=== PATIENT | female | born 2000 | race African-American/Black ===

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

== ENCOUNTER 2020-10-18 10:44 | Emergency (ER) | payer BC, OTHER, SELFPAY ==
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
--- NOTE | 2020-10-18 13:21 | RAD REPORT ---
EXAM DESCRIPTION: RAD - Chest Pa And Lat (2 Views) - 10/18/2020 12:58 pm CLINICAL HISTORY: CHEST PAIN Chest pain. COMPARISON: Abdomen Acute Series dated 10/06/2017; CHEST PA AND LAT 2 VIEW dated 01/23/2012 FINDINGS: The lungs are clear. The heart is normal in size. No displaced fractures. IMPRESSION: No acute or concerning finding suspected.
[2020-10-18 13:28] VITALS: TEMP 99.1; O2SAT 100
[2020-10-18 13:30] VITALS: BP 113/68
== END 2020-10-18 13:22 | disposition home or self-care (01) ==
LOC: ER 10:44
DX: R07.89 Other chest pain (principal)
CPT/HCPCS: 71046; 93005; 99284

== ENCOUNTER 2022-01-25 13:07 | Emergency (ER) | payer BC, SELFPAY ==
[2022-01-25] MEDS ORDERED: LORAZEPAM 1 MG TABLET ONE (14:10)
[2022-01-25 14:25] LABS: Urine Blood 3+ (Negative); Urine Glucose Negative (Negative); Urine Protein 2+ (Negative)
[2022-01-25 14:40] LABS: Protime INR 1.11
[2022-01-25 14:45] LABS: Barbiturates NEGATIVE (NEGATIVE); Benzodiazepines NEGATIVE (NEGATIVE); Cocaine NEGATIVE (NEGATIVE); METHAMPHETAM NEGATIVE (NEGATIVE); Methadone NEGATIVE (NEGATIVE); Opiates NEGATIVE (NEGATIVE); Phencyclidine NEGATIVE (NEGATIVE); THC Cannibis POSITIVE (NEGATIVE)
[2022-01-25 14:49] LABS: ALT/SGPT 17 U/L (12-78); AST/SGOT 13 U/L (15-37); Albumin 4.4 g/dL (3.4-5.0); Alkaline Phosphatase 67 U/L (45-117); BUN Blood Urea Nitrogen 6 mg/dL (7-18); Bicarbonate 25 mmol/L (21-32); Bilirubin Direct 0.1 mg/dL (0-0.2); Bilirubin Total 0.5 mg/dL (0.2-1.0); Glomerular Filtration Rate 105 ml/min (=/>90); Glucose Level 88 mg/dL (74-106); Potassium 3.5 mmol/L (3.5-5.1); Protein, Total 8.4 g/dL (6.4-8.2); Sodium Level 139 mmol/L (136-145)
[2022-01-25 14:59] LABS: Absolute Lymphocytes (CBC) 1.1 K/uL (0.7-4.9); Hematocrit 40.4 % (36.0-45.0); Lymphocytes % 16.6 % (15.3-44.8); RBC Red Blood Cell Count 4.83 M/uL (3.86-4.86)
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
[2022-01-25 19:38] VITALS: BP 145/82; TEMP 98.3; O2SAT 100
--- NOTE | 2022-01-26 14:42 | EKG ---
Test Date: 2022-01-25 Test Time: 14:32:53 Loss Prevention Research Engineer: LISSETH MEASUREMENT RESULTS: Intervals: Rate: 72 GA: 116 QRSD: 80 QT: 378 QTc: 413 [place]: P: 72 GA: 116 QRS: 81 T: 73 INTERPRETIVE STATEMENTS: Sinus rhythm with marked sinus arrhythmia Otherwise normal ECG Compared to ECG 10/18/2020 11:39:09 No significant changes Electronically Signed On 01-26-22 14:40:37 CDT by Chaparro Estrella
== END 2022-01-25 19:22 | disposition home or self-care (01) ==
LOC: ER 13:07
DX: F32.A Depression, unspecified (principal); R07.9 Chest pain, unspecified; R45.851 Suicidal ideations; F41.8 Other specified anxiety disorders; Z72.0 Tobacco use; Z20.822 Contact with and (suspected) exposure to COVID-19
CPT/HCPCS: 36415; 80048; 80076; 80307; 80320; 80329; 81003; 81025; 85025; 85610; 85730; 93005; 99285; U0003